=== PATIENT | male | born 1975 | race Caucasian/White ===

== ENCOUNTER → 2016-03-03 | Outpatient (CLI) | payer OTHER ==
[~2016-03-03] MED LIST: AMBIEN 10MG TAB10 MG PO; AMBIEN10 MG PO; COGENTIN GENERIC1 MG PO; DICLOFENAC SODI75 M2 PO; ERYC250 MG PO; ETODOLAC400 MG PO; FLEXERIL10 MG PO; GABAPENTIN300 MG PO; IBU-8800 MG PO; LEVITRA10 MG PO; LORTAB 5/500 501 TAB PO; LORTAB 500 MG-71 TAB PO; MEDROL 4MG. DOSE4 MG PO; NALTREXONE50 MG PO; PAXIL20 MG PO; PERCOCET1 TA1 PO; SOMA350 MG PO; TRAMADOL 50MG T50 MG PO; TRAMADOL50 M1 PO; VALIUM5 MG PO
--- NOTE | 2016-03-03 09:37 | RADIOLOGY REPORT PS360 ---
[id number] VIEWS HISTORY: LT SHOULDER PAIN COMPARISON: None FINDINGS: No fracture or dislocation. No lytic or blastic change. There is normal mineralization. There is mild subacromial stenosis. Faint calcification is noted along the greater tuberosity suggesting calcific tendinitis. Unremarkable glenohumeral joint. IMPRESSION: Calcific tendinitis with mild subacromial stenosis
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
== END ==
LOC: RAD 08:37
DX: M25.512 Pain in left shoulder (principal)

== ENCOUNTER → 2016-11-16 | Outpatient (CLI) | payer OTHER ==
[2016-11-16 13:54] LABS: AMPHETAMINES/METAMPHETAMINES NEGATIVE ng/mL (<1000)
== END ==
LOC: LAB 12:49
PROVIDERS: Emergency Medicine
DX: Z79.899 Other long term (current) drug therapy (principal)

== ENCOUNTER → 2016-12-14 | Outpatient (CLI) | payer OTHER ==
[2016-12-14 13:41] LABS: AMPHETAMINES/METAMPHETAMINES NEGATIVE ng/mL (<1000)
== END ==
LOC: LAB 13:14
PROVIDERS: Emergency Medicine
DX: Z79.899 Other long term (current) drug therapy (principal)

== ENCOUNTER → 2017-01-11 | Outpatient (CLI) | payer OTHER ==
[2017-01-11 12:43] LABS: AMPHETAMINES/METAMPHETAMINES NEGATIVE ng/mL (<1000)
== END ==
LOC: LAB 11:29
PROVIDERS: Emergency Medicine
DX: Z79.899 Other long term (current) drug therapy (principal)

== ENCOUNTER → 2017-02-10 | Outpatient (CLI) | payer OTHER ==
[2017-02-10 19:12] LABS: AMPHETAMINES/METAMPHETAMINES NEGATIVE ng/mL (<1000)
== END ==
LOC: LAB 18:12
PROVIDERS: Emergency Medicine
DX: Z79.899 Other long term (current) drug therapy (principal)